=== PATIENT | male | born 1970 | race African-American/Black ===

== ENCOUNTER 2016-11-28 12:07 | Emergency (ER) | payer OTHER ==
[~2016-11-28] VITALS: Ht 185.4 cm; Wt 98.6 kg
[2016-11-28 12:20] VITALS: TEMP 36.8; Ht 185.4 cm; Wt 98.6 kg
[2016-11-28] MEDS ORDERED: MECL1TAB42 PO (12:22)
[2016-11-28 12:30] LABS: HEMATOCRIT 42.3 % (42-52); MEAN CELL VOLUME 86.5 fL (80-100); MEAN CORPUSCULAR HEMOGLOBIN 30.9 pg (25-34); MEAN CORPUSCULAR HGB CONC 35.7 g/dl (32-36); MEAN PLATELET VOLUME 9.3 fL (7.4-10.4); PLATELET COUNT 179 K/uL (130-400); RED BLOOD COUNT 4.89 M/uL (4.7-6.1); WHITE BLOOD COUNT 5.81 K/uL (4.8-10.8)
--- NOTE | 2016-11-28 12:43 | DIAGNOSTIC IMAGING REPORT ---
CHEST ONE VIEW PORTABLE CLINICAL HISTORY: Chest pain/diaphoresis dyspnea COMPARISON STUDY: No previous studies for comparison. FINDINGS: The bones soft tissues and hemidiaphragms are normal. The cardiomediastinal silhouette is normal. The lungs are clear. The pulmonary vasculature is normal. IMPRESSION: Negative chest. Electronically signed by: Sabino Rodriguez M.D. 11/28/2016 12:42 PM Dictated Date/Time: 11/28/2016 12:33 PM
[2016-11-28 12:47] LABS: BUN/CREATININE RATIO 9.9 (10-20); CALCIUM 8.8 mg/dl (8.5-10.1); CREATININE 1.3 mg/dl (0.60-1.40); POTASSIUM 3.9 mmol/L (3.5-5.1)
[2016-11-28 12:49] LABS: INR 1.1 (0.9-1.1); PARTIAL THROMBOPLASTIN RATIO 0.9; PROTHROMBIN TIME (PATIENT) 11.4 SECONDS (9.0-12.0)
[2016-11-28 12:52] LABS: ALB/GLOB RATIO 1.1 (0.9-2); CKMB/CK RATIO 0.6 (0-3.0)
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
[2016-11-28 14:43] VITALS: BP 121/70; PULSE 68; O2SAT 100
== END 2016-11-28 14:45 | disposition home or self-care (01) ==
LOC: EDBD 12:07 → C.EDB 12:08
DX: R07.9 Chest pain, unspecified (principal); R55 Syncope and collapse; R42 Dizziness and giddiness; Z87.891 Personal history of nicotine dependence; Z79.899 Other long term (current) drug therapy